=== PATIENT | male | born 1985 | race Caucasian/White ===

== ENCOUNTER 2022-03-20 16:49 | Emergency (ER) | payer OTHER, SELFPAY ==
--- NOTE | ~2022-03-20 | CT_ITS ---
EXAMINATION: CT cervical spine wo con DATE: 03/20/2022 18:15 INDICATION: neck pain TECHNIQUE: Computed tomography (CT) of the cervical spine was performed without intravenous contrast. Automated exposure control and iterative reconstruction technique were employed. The dose-length pro duct was 494.51 mGy-cm. COMPARISON: None FINDINGS: Vertebral Body Alignment: Intact. Reversed lordosis as can occur with positioning or muscle spasm. Craniocervical and atlantoaxial alignment: Mild degenerative change. Alignment intact. Osseous structures/fracture: No evidence of a lytic or blastic process in the visualized spine. No e vidence of acute fracture. Cervical soft tissues: The paraspinal soft tissues planes are maintained. Degenerative changes: No significant degenerative changes. IMPRESSION: No acute fracture or traumatic malalignment in the cervical spine. Reviewed, dictated and finalized at location K.
--- NOTE | ~2022-03-20 | CT_ITS ---
EXAMINATION: CT chest abdomen pelvis wo con DATE: 03/20/2022 18:16 INDICATION: trauma, fell 15 ft . TECHNIQUE: Computed tomography (CT) of the chest, abdomen, and pelvis was performed without intraveno us contrast. Automated exposure control and iterative reconstruction technique were employed. The dos e-length product was 1891.79 mGy-cm. COMPARISON: None FINDINGS: CHEST: No thoracic aortic injury. No mediastinal hematoma. No pericardial effusion. No acute lung injury. No pleural effusion or pneumothorax. ABDOMEN/PELVIS: No solid organ injury. No evidence of bowel or mesenteric injury. No free fluid or free air. No retroperitoneal hematoma. Pelvic contents are atraumatic. MUSCULOSKELETAL: No acute fracture. No fracture or traumatic malalignment of the thoracic or lumbar spine. IMPRESSION: Examination limited by lack of intravenous contrast, within that constraint, no acute process detecte d in the chest, abdomen, or pelvis. Reviewed, dictated and finalized at location K. IMPRESSION: Examination limited by lack of intravenous contrast, within that constraint, no acute process detected in the chest, abdomen, or pelvis.
--- NOTE | ~2022-03-20 | CT_ITS ---
EXAMINATION: CT brain wo con DATE: 03/20/2022 18:15 INDICATION: fall . TECHNIQUE: Computed tomography (CT) of the head was performed without intravenous contrast. The mA wa s adjusted according to patient size. Iterative reconstruction technique was employed. The dose-lengt h product was 681.00 mGy-cm. COMPARISON: None FINDINGS: No acute intracranial hemorrhage or extra-axial fluid collection. No hydrocephalus, mass, or herniation. No acute ischemic infarct. Unremarkable dural venous sinus attenuation. No acute osseous abnormality. The aerated spaces are clear. IMPRESSION: No acute intracranial process. Reviewed, dictated and finalized at location K.
--- NOTE | ~2022-03-20 | XR_ITS ---
EXAM: XR forearm LT 2V DATE: 03/20/2022 18:18 HISTORY: pain, fall . COMPARISON: None available. FINDINGS: Normal mineralization. No fracture or dislocation. No lytic or blastic lesion. Joint space s are maintained. No erosion or periosteal change. Soft tissues within normal limits. IMPRESSION: No acute osseous finding in the left forearm. Reviewed, dictated and finalized at location K.
[2022-03-20 17:00] VITALS: BP 131/76; PULSE 87; RESP 14; TEMP 36.9; O2SAT 98
[2022-03-20] MEDS: KETOROLAC (*BKC) 60 MG/2 ML VIAL IM (17:47)
[2022-03-20] MEDS: TETANUS,DIPHTHERIA,AC PERTUSSIS ADULT 0.5 ML (ADACEL) IM (17:50)
[2022-03-20 17:56] LABS: Basophils Absolute Auto 0.03 K/mm3 (0.00-0.10); Basophils Percent Auto 0.3 % (0.0-1.0); Eosinophils Absolute Auto 0.06 K/mm3 (0.02-0.50); Eosinophils Percent Auto 0.6 % (1.0-6.0); Hematocrit 45.3 % (40.0-54.0); Hemoglobin 15.3 g/dL (14.0-18.0); Immature Granulocyte Absolute 0.04 K/mm3 (0.00-0.00); Immature Granulocyte Percent A 0.4 % (0.0-0.0); Lymphocytes Absolute Auto 1.41 K/mm3 (1.10-4.50); Lymphocytes Percent Auto 13.8 % (18.0-42.0); Mean Corpuscular HGB Conc 33.8 g/dL (32.0-36.0); Mean Corpuscular Hemoglobin 28.8 pg (27.0-31.0); Mean Corpuscular Volume 85.2 fL (78.0-102.0); Mean Platelet Volume 10.6 fl (8.7-11.0); Monocytes Absolute Auto 0.59 K/mm3 (0.10-0.90); Monocytes Percent Auto 5.8 % (2.0-11.0); Neutrophils Absolute Auto 8.1 K/mm3 (1.7-7.2); Neutrophils Percent Auto 79.1 % (50.0-70.0); Platelet Count Result 198 K/mm3 (150-420); Red Blood Count 5.32 M/mm3 (4.70-6.10); Red Cell Distribution Width 12.7 % (11.6-14.4); White Blood Count 10.3 K/mm3 (4.8-10.8)
[2022-03-20 18:00] VITALS: BP 135/68; PULSE 84; RESP 16; O2SAT 99
--- NOTE | 2022-03-20 18:08 | ED.FALL ---
HPI - Fall General Chief Complaint: Fall Stated Complaint: fall/pain all over Time Seen by Provider: 03/20/22 16:53 Source: patient, family and RN notes reviewed Mode of arrival: ambulatory Limitations: no limitations History of Present Illness HPI Narrative: Pt was struck on left orbit by a tree limb and fell 15 feet, hitting head and thorax with multiple abrasions of neck, back,chest and limbs. Pt denied any injury below the waist. MD complaint: fall Onset (ago): hour(s) (1) Fall from: from height (distance) Fall witnessed: no Place fall occurred: home Loss of consciousness: none Prolonged down time: no Symptoms prior to fall: none Context: tripped/slipped Location of injury: head, face, back and other (left forearm) Location of injury - extremities: Left: forearm Severity: moderate Severity scale (1-10): 6 Quality: dull Associated symptoms (after fall): headache Related Data Home Medications Medication Instructions Recorded Confirmed No Home Medications 03/31/22 03/31/22 Allergies Allergy/AdvReac Type Severity Reaction Status Date / Time No Known Allergies Allergy Verified 03/20/22 17:15 Review of Systems Review of Systems: All systems reviewed & are unremarkable except as noted in HPI and below Constitutional: Constitutional: Reports no additional constitutional complaints Eyes: Eyes: Reports no additional eye complaints ENT: Reports system reviewed and no additional complaints, except as documented Comments: left upper lateral orbital laceration. Cardiovascular: Cardiovascular: Reports no additional cardiovascular complaints Respiratory: Respiratory: Reports no additional respiratory complaints Gastrointestinal: Gastrointestinal: Reports no additional gastrointestinal complaints Musculoskeletal: Musculoskeletal: Reports no additional musculoskeletal complaints Integumentary/Breasts: Skin/Breast: Reports system reviewed and no additional complaints, except as docu Neurologic: Reports system reviewed and no additional complaints, except as documented Psychiatric: Psychiatric: Reports no additional psychiatric complaints Endocrine: Endocrine: Reports no additional endocrine complaints Hematologic/Lymphatic: Hematologic/Lymphatic: Reports no additional hematologic/lymphatic complaints Allergic/Immunologic: Allergic/Immunologic: Reports no additional allergic/immunologic complaints PMFSH Past Medical History Medical History Head injury Exam Const: General: no acute distress Nutritional Appearance: well nourished Orientation/consciousness: patient oriented x3 Limitations: no limitations Other: 2.2 cm left orbital laceration. Multiple abrasions of head, neck, chest, back with right mid back splinter seen. HENMT: Head: normal to inspection and laceration Ears: external ears normal, TM's normal bilaterally and EAC's normal General nose exam: Normal external nose present and Normal nares present Face and sinus: normal facial exam and sinuses nontender Mouth: Yes Normal oral and palatal mucosa present and Yes moist mucous membranes Teeth and gingiva: dentition normal Throat: posterior oropharynx normal Eyes: Conjunctivae: conjunctivae normal Pupils: Equal, round and reactive pupils present EOM: EOMs intact bilaterally Neck: Neck: normal visual inspection, no lymphadenopathy and no meningeal signs Chest: Chest palpation & inspection: normal inspection of the chest Resp: Effort & Inspection: normal respiratory effort Auscultation: clear to auscultation bilaterally Cardio: Rate: regular rate Rhythm: regular rhythm Other: no acute chest wall tenderness GI: GI Palp: Yes Soft to palpation and No Tenderness to palpation present (GI) Auscultation: normal bowel sounds : General: Yes bladder normal to palpation and Yes no CVA tenderness Back/Spine/Pelvis: Back: no CVA tenderness Skin: General skin exam: no
[2022-03-20 18:15] LABS: Alanine Aminotransferase 95 U/L (16-63); Alkaline Phosphatase 57 U/L (46-116); Anion Gap 8 mmol/L (8-16); Aspartate Amino Transferase 37 U/L (15-37); Bilirubin,Total 0.7 mg/dL (0.00-1.00); Blood Urea Nitrogen 16 mg/dL (7-18); Carbon Dioxide 28 mmol/L (21-32); Chloride 106 mmol/L (98-108); Estimated CRCL calculation 78 ml/min; Estimated Glomerular Filt Rate 49; Ethanol < 3 mg/dL (0-6); Glucose 126 mg/dL (70-99); Lactic Acid Reflex 2.4 mmol/L (0.4-2.0); Osmolality Calculated 297 mOsm/kg (285-295); Sodium 142 mmol/L (136-145); Total Protein 6.6 g/dL (6.4-8.2); Troponin I 6.3 ng/L (0.00-60.4)
[2022-03-20 18:43] LABS: Add Urine Microscopic? YES; Appearance Urine Clear (Clear); Bilirubin Urine Negative (Negative); Blood Urine Negative (Negative); Color Urine Yellow (Yellow); Glucose Urine UA Negative (Negative); Ketones Urine Trace (Negative); Leukocyte Esterase Ur Negative (Negative); Nitrate Urine Negative (Negative); Protein Urine Negative (Negative); Specific Grav Ur >= 1.030 (1.010-1.020)
[2022-03-20 18:50] LABS: Amorphous Sediment Urine Few; Amphetamine Screen Urine Negative (Negative); Barbiturate Screen Urine Negative (Negative); Benzodiazepines Screen Urine Negative (Negative); Cannabinoid Screen Urine Negative (Negative); Cocaine Screen Urine Negative (Negative); Methadone Screen Urine Negative (Negative); Mucus Urine Few /lpf; Opiate Screen Urine Negative (Negative); Phencyclidine Screen Urine Negative (Negative)
--- NOTE | 2022-03-20 19:00 | PC.NURSE ---
In RN to RN report, it was reported that pt refused IV unless absolutely needed. No medications or fluids were required and no IV was placed.
[2022-03-20] MEDS: LIDOCAINE HCL 2% PF INJ 5 ML VIAL INFILTRATE (19:22)
--- NOTE | 2022-03-20 20:05 | PC.NURSE ---
Pt states that he does not need an X-ray of the right arm and asked to refuse. ERP notified and states it's ok. X-ray notified.
--- NOTE | 2022-03-20 20:32 | PC.NURSE ---
RN cleans wounds and dresses them. Applies amrita wraps to left elbow and right upper arm down to the right elbow. PMS is present in both arms distal to the amrita wraps. Pt refuses a sling to the left arm.
[2022-03-20 20:42] VITALS: BP 129/86; PULSE 83; RESP 16; O2SAT 96
[2022-03-20 20:54] LABS: Reflex Lactic Acid Yes or No Add Lactic
== END 2022-03-20 20:51 | disposition home or self-care (01) ==
PROVIDERS: Emergency Provider Emergency Medicine
DX: S09.90XA Unspecified injury of head, initial encounter (principal); S05.42XA Penetrating wound of orbit with or without foreign body, left eye, initial encounter; W17.89XA Other fall from one level to another, initial encounter
CPT/HCPCS: 36415; 70450; 71250; 72125; 73090; 74176; 80053; 80307; 81001; 83605; 84484; 85025; 90471; 90715; 96372; 99284; J1885; L0150

== ENCOUNTER 2022-03-31 22:26 | Emergency (ER) | payer OTHER, SELFPAY ==
[2022-03-31 22:40] VITALS: BP 134/91; PULSE 68; RESP 16; TEMP 36.4; O2SAT 96
--- NOTE | 2022-03-31 22:53 | ED.UPPEXIN ---
HPI - Extremity Injury (Upper) General Chief Complaint: Extremity Injury, Upper Stated Complaint: fell off of ladder, lump on R upper arm Source: patient Mode of arrival: ambulatory Limitations: no limitations History of Present Illness HPI narrative: this is a 36-year-old gentleman that presented approximately 10 days ago to our ER after he fell off a ladder had lesion on his posterior right upper arm that was treated with an antibiotic. Patient presents again with some some mild inflammation and swelling to his right posterior upper arm with no fluctuance no drainage no warmth or tenderness no fever chills. Patient did continue course of antibiotics and is doing well. complaint: injury to: right Onset (ago): day(s) Other Extremity Injury: Right: arm ( area of swelling) Handedness: right Place: work Severity: mild Related Data Home Medications Medication Instructions Recorded Confirmed No Home Medications 03/31/22 03/31/22 Allergies Allergy/AdvReac Type Severity Reaction Status Date / Time No Known Allergies Allergy Verified 03/20/22 17:15 Review of Systems Review of Systems: All systems reviewed & are unremarkable except as noted in HPI and below PMFSH Past Medical History Medical History Head injury Exam Const: General: healthy appearing and no acute distress Nutritional Appearance: well nourished HENMT: Head: normal to inspection Ears: external ears normal General nose exam: Normal external nose present Face and sinus: normal facial exam Mouth: Yes Normal oral and palatal mucosa present Eyes: Conjunctivae: conjunctivae normal EOM: EOMs intact bilaterally Neck: Neck: normal visual inspection, no lymphadenopathy and no meningeal signs Chest: Chest palpation & inspection: normal inspection of the chest Resp: Effort & Inspection: normal respiratory effort Cardio: Rate: regular rate Rhythm: regular rhythm GI: GI Palp: Yes Soft to palpation Skin: General skin exam: normal color Other: Nonfluctuant lump on her right upper posterior arm with no warmth or tenderness no drainage Neuro: General: patient oriented x3 Cranial nerves: Yes Nystagmus not present Speech: normal speech Gait exam (Neuro): Normal gait present Extrem: General: normal to inspection Psych: Mental Status: mental status grossly normal Course Course Emergency Course: area was prepped with Betadine and 11 blade used to make a little matthew in the skin and there is no drainage. Vital Signs Vital signs: Vital Signs Temperature 36.4 C 03/31/22 22:40 Pulse Rate 68 03/31/22 22:40 Respiratory Rate 16 03/31/22 22:40 Blood Pressure 134/91 H 03/31/22 22:40 Pulse Oximetry 96 03/31/22 22:40 Oxygen Delivery Room Air 03/31/22 22:40 Temperature 36.4 C 03/31/22 22:40 Pulse Rate 68 03/31/22 22:40 Respiratory Rate 16 03/31/22 22:40 Blood Pressure 134/91 H 03/31/22 22:40 Pulse Oximetry 96 03/31/22 22:40 Oxygen Delivery Room Air 03/31/22 22:40 Procedures Abscess I/D upper extremity: Date of Incision: 03/31/22 Time of Incision: 22:57 Amount of anesthesia used (mL): 0 Packing used?: none I&D Results: Blood Complications: bleeding Critical Care Time Critical Care Time Critical Care Time: No Discharge Plan Discharge Clinical Impression: Abscess Patient Disposition: Home, Self-Care Condition: Stable Instructions: Antibiotic Form, Abscess Follow-up (ED) Additional Instructions: continue to monitor can use Phuc wrap for compression and ibuprofen 200mg twice daily for about 5 days to 1 week and advised to follow-up with primary care physician if symptoms persist or worsen. Prescriptions: No Action No Home Medications Follow-up/Referrals: UNKNOWN,DOCTOR [Primary Care Provider] - Time of Disposition: :58
--- NOTE | 2022-03-31 23:04 | PC.NURSE ---
Velia pulled per ERP request but not used
== END 2022-03-31 23:00 | disposition home or self-care (01) ==
PROVIDERS: Emergency Provider Emergency Medicine
DX: L02.413 Cutaneous abscess of right upper limb (principal)
CPT/HCPCS: 10060; 99282